=== PATIENT | male | born 1985 | race Caucasian/White ===

== ENCOUNTER 2020-07-30 11:45 | Emergency (ER) | payer OTHER, SELFPAY ==
--- NOTE | ~2020-07-30 | XR_ITS ---
EXAMINATION: XR chest 2V 07/30/2020 12:50 INDICATION: Right rib pain PROCEDURE: 2 views chest COMPARISON: No prior studies for comparison. FINDINGS: The lungs are clear. The cardiomediastinal silhouette is within normal limits. There are no pleural effusions. There is no pneumothorax suspected. IMPRESSION: 1: NO ACUTE CARDIOPULMONARY DISEASE. Reviewed, dictated and finalized at location B.
[2020-07-30 12:00] VITALS: BP 122/60; PULSE 56; RESP 18; TEMP 36.6; O2SAT 99
--- NOTE | 2020-07-30 12:34 | ED.GENADULT ---
HPI - General Adult General Chief complaint: Unspecified Stated complaint: Pain under ribs right side Time Seen by Provider: 07/30/20 12:33 Source: patient and RN notes reviewed History of Present Illness HPI narrative: Patient is a 35-year-old male who presents the urgent care with complaints of right-sided rib pain. Patient states that it started today while he was at work but denies of any trauma or known injury. Patient denies any recent fall. Denies of any shortness of breath or chest pain. Denies of any recent illness, fever, nausea, vomiting, abdominal pain. Patient has not taken anything prior to arrival for his pain. No other acute complaints. Patient appears to be in mild to moderate pain. Patient aware of the plan of care. Some parts of this dictation were generated by voice recognition software and may contain typographical and/or grammatical inaccuracies. Related Data Home Medications Medication Instructions Recorded Confirmed buprenorphine-naloxone [Suboxone] 2 film SUBLINGUAL DAILY 07/30/20 07/30/20 gabapentin 100 mg PO TID 07/30/20 07/30/20 hydroxyzine pamoate 50 mg PO BID 07/30/20 07/30/20 mirtazapine 15 mg PO HS 07/30/20 07/30/20 propranolol 10 mg PO TID 07/30/20 07/30/20 Allergies Allergy/AdvReac Type Severity Reaction Status Date / Time No Known Allergies Allergy Verified 07/30/20 12:37 Review of Systems Review of Systems: Narrative: CONSTITUTIONAL: Denies fever, chills, or sweats. EYES: Denies visual changes, redness, or discharge. ENT: Denies rhinorrhea, congestion, sore throat, or otalgia. CARDIOVASCULAR: Denies chest pain, palpitations, or edema. RESPIRATORY: Denies cough or dyspnea. GASTROINTESTINAL: Denies abdominal pain, nausea, vomiting, or diarrhea. GENITOURINARY: Denies dysuria or hematuria. SKIN: Denies rash or itching. MUSCULOSKELETAL: Denies back pain, joint pain, or myalgia. NEUROLOGIC: Denies headache, numbness, or weakness. All other systems reviewed are negative, except as documented in HPI. PMFSH Comments At the time of my signature, I reviewed and agree with the nursing past medical, surgical, social, and family history. There is no relevant family history pertinent to the patient complaint. Exam Narrative: Exam Narrative: GENERAL: This is a well-nourished, well-developed patient, in no apparent distress. HEAD: normocephalic, atraumatic. EYES: PERRL. Sclera clear/white. Vision is grossly intact. EARS: External ears normal NOSE: External nose normal with no obvious nasal discharge, nares without redness, no rhinorrhea. THROAT: Mucous membranes moist NECK: Neck supple CARDIOVASCULAR: Regular rate and rhythm without murmurs, gallops, or rubs. RESPIRATORY: Inspiratory wheezes throughout GASTROINTESTINAL: Mild to moderate right upper quadrant tenderness, bowel sounds active. Negative obturator SKIN: warm, intact with no suspicious lesions or rash, good texture and turgor. NEURO: awake, alert, and oriented to person, place and time. There were no obvious focal neurologic abnormalities. EXTREMITIES: No clubbing, cyanosis, or edema. BACK: Moderate right-sided thoracic rib pain Course Vital Signs Vital signs: Vital Signs Temperature 97.9 F 07/30/20 12:00 Pulse Rate 56 L 07/30/20 12:00 Respiratory Rate 18 07/30/20 12:00 Blood Pressure 122/60 07/30/20 12:00 Pulse Oximetry 99 07/30/20 12:00 Temperature 97.9 F 07/30/20 12:00 Pulse Rate 56 L 07/30/20 12:00 Respiratory Rate 18 07/30/20 12:00 Blood Pressure 122/60 07/30/20 12:00 Pulse Oximetry 99 07/30/20 12:00 Reviewed Transfer Transfered to: [facility] Transportation: Other (Private car) Transfer rationale: Right upper quadrant pain, through to the back Accepting physician: Dr. Manriquez Medical Decision Making [facility] Narrative Medical decision making narrative: Reviewed lab results with the patient. He is aware that urine analysis was negative for urinary tract infection. Aware
== END 2020-07-30 13:20 | disposition short-term general hospital (02) ==
PROVIDERS: Emergency Provider Nurse Practitioner Family
DX: R10.11 Right upper quadrant pain (principal)
CPT/HCPCS: 71046; 81003; 99213; G0463